=== PATIENT | male | born 1985 | race Caucasian/White ===

== ENCOUNTER 2024-06-09 22:22 | Emergency (ER) | payer BC ==
[2024-06-10 00:32] VITALS: BP 132/71
== END 2024-06-10 00:32 | disposition home or self-care (01) ==
LOC: ED 22:22
DX: S61.310A Laceration without foreign body of right index finger with damage to nail, initial encounter (principal); W23.0XXA Caught, crushed, jammed, or pinched between moving objects, initial encounter